=== PATIENT | male | born 1965 | race Caucasian/White ===

== ENCOUNTER 2018-02-27 22:04 | Inpatient (IN) | payer BC, OTHER ==
[2018-02-28 00:20] LABS: #Eosinphils 0.1 thou/uL (0.0-0.7); #Lymphocytes 1.9 thou/uL (1.20-3.40); #Monocytes 0.8 thou/uL (0.11-0.59); #Neutrophils 7.5 thou/uL (1.40-6.50); %Basophils 0.4 % (0.0-1.0); %Eosinophils 1.1 % (0.0-10.0); %Lymphocytes 18.2 % (21.0-51.0); %Monocytes 7.8 % (0.0-10.0); %Neutrophils 72.6 % (42.0-75.0); Hemoglobin 13.4 g/dL (14.0-18.0); Mean Corpuscular HGB CONC 35.8 g/dL (32.0-36.0); Mean Corpuscular Hemoglobin 32.4 pg (27.0-31.0); Mean Corpuscular Volume 90.7 fL (78.0-98.0); Mean Platelet Volume 6.4 fL (7.4-10.4); Platelet Count 302 thou/uL (130-400); RBC Distribution Width 11.8 % (11.5-14.5); Red Blood Cell (RBC) Count 4.12 mill/uL (4.70-6.10); White Blood Cell (WBC) Count 10.4 thou/uL (4.8-10.8)
[2018-02-28 00:28] LABS: Bilirubin Negative (Negative); Blood, Urine Negative (Negative); Clarity CLEAR (Clear); Glucose, Urine (Dipstick) Negative (Negative); Leukocyte Negative (Negative); Nitrite Negative (Negative); Protein, Urine (Dipstick) Negative (Neg-Trace); Specific Gravity, Urine 1.013 (1.002-1.036)
[2018-02-28 00:42] LABS: ALT (SGPT) 9 U/L (8-55); AST (SGOT) 15 U/L (5-34); Albumin 4.1 g/dL (3.5-5.0); Alkaline Phosphatase 113 U/L (40-150); Anion Gap 13 mmol/L (10-20); BUN (Urea Nitrogen) 19 mg/dL (8.4-25.7); Bilirubin, Total 0.5 mg/dL (0.2-1.2); Calc. Creatinine Clearance 0 mL/min (70-130); Calcium 9.2 mg/dL (7.8-10.44); Carbon Dioxide 23 mmol/L (22-29); Chloride 102 mmol/L (98-107); Estimated GFR-MDRD 67; Globulin 3.5 g/dL (2.4-3.5); Glucose 136 mg/dL (70-105); Lipase 22 U/L (8-78); Potassium 3.6 mmol/L (3.5-5.1); Protein, Total 7.6 g/dL (6.0-8.3); Sodium 134 mmol/L (136-145)
[2018-02-28] MEDS ORDERED: Morphine 4 MG/ML VIAL ONE (00:49)
[2018-02-28] MEDS ORDERED: metroNIDAZOLE 500 MG/100 ML BAG ONE (02:05)
[2018-02-28] MEDS ORDERED: Morphine 4 MG/ML VIAL SLOW IVP PRN (02:28)
[2018-02-28] MEDS ORDERED: Sodium Chloride 0.9% 1,000 ML IV SCH (02:30)
[2018-02-28 03:25] VITALS: BMI 25.2
[2018-02-28] MEDS ORDERED: Senokot S 8.6-50 MG TAB PO PRN (07:21)
[2018-02-28] MEDS ORDERED: hydrALAZINE 20 MG/ML VIAL SLOW IVP PRN (07:21)
[2018-02-28] MEDS ORDERED: Artificial Tear Sol 15 ML BOT EA EYE PRN (07:21)
[2018-02-28] MEDS ORDERED: Bisacodyl 5 MG TAB PO PRN (07:21)
[2018-02-28] MEDS ORDERED: Ondansetron ODT 4 MG TAB PO PRN (07:21)
[2018-02-28] MEDS ORDERED: Calcium Carbonate 500 MG ChewTAB PO PRN (07:21)
[2018-02-28] MEDS ORDERED: Bisacodyl 10 MG SUPP PR PRN (07:21)
[2018-02-28] MEDS ORDERED: Diabetic Tussin 200 MG/10 ML UDCUP PO PRN (07:21)
[2018-02-28] MEDS ORDERED: HYDROcodone/Acetaminophen 5/325 mg Tablet PO PRN (07:21)
[2018-02-28] MEDS ORDERED: Cepastat Lozenges 1 LOZ PO PRN (07:21)
[2018-02-28] MEDS ORDERED: Ondansetron PF 4 MG/2 ML Vial IVP PRN (07:21)
[2018-02-28] MEDS ORDERED: Eucerin (Mineral Oil/Petrolatum,White) 30 gm Jar TOP PRN (07:21)
[2018-02-28] MEDS ORDERED: Loperamide HCl 2 MG CAP PO PRN (07:21)
[2018-02-28] MEDS ORDERED: Zolpidem Tartrate 5 MG TAB PO PRN (07:21)
[2018-02-28] MEDS ORDERED: Loratadine 10 MG TAB PO PRN (07:21)
[2018-02-28] MEDS ORDERED: Sodium Chloride 0.65% Nasal 44 ML BOT EA NARE PRN (07:21)
[2018-02-28] MEDS ORDERED: Acetaminophen 325 MG TAB PO PRN (07:21)
[2018-02-28] MEDS: Morphine 2 MG/ML SYRINGE SLOW IVP PRN ×2 (08:01→16:28)
[2018-02-28] MEDS: Enoxaparin Sodium 40 MG/0.4 ML SYRINGE SC SCH (08:03)
[2018-02-28] MEDS: Saccharomyces boulardii 250 MG CAP PO SCH (08:04)
[2018-02-28] MEDS: Famotidine 20 MG TAB PO SCH ×2 (08:04→20:23)
[2018-02-28] MEDS: Sodium Chloride 0.9% 1,000 ML IV SCH ×2 (08:06→20:24)
--- NOTE | 2018-02-28 09:38 | CT ---
PRELIMINARY REPORT/[facility]/EMERGENTY AFTER-HOURS PROCEDURE CT Abdomen and Pelvis With Intravenous Contrast EXAM DATE/TIME: 02/28/2018 12:41 AM CLINICAL HISTORY: 52 years old, male; Pain; Abdominal pain; Generalized; Patient HX: M52 presents to the ed C/O diffuse abdominal pain, and feeling constipated. PT reports taking a laxatives with no relief. PT reports fe eling like he is unable to have a full bowel movement. PT denies nausea/vomiting, fever. PT reports last bm was very small and hard. PT reports having gall bladder and appendix. TECHNIQUE: Axial computed tomography images of the abdomen and pelvis with intravenous contrast. Coronal reformatted images were created and reviewed. COMPARISON: No relevant prior studies available. FINDINGS: Lower thorax: Rounded 4 cm hiatal hernia. ABDOMEN: Liver: Normal. No mass. Gallbladder and bile ducts: Normal. No calcified stones. No ductal dilation. Pancreas: Normal. No ductal dilation. Spleen: Normal. No splenomegaly. Adrenals: Normal. No mass. Kidneys and ureters: Normal. No hydronephrosis. Stomach and bowel: Mild-moderate inhomogeneity of the fat and wall thickening of the sigmoid colon wi th evidence of diverticulosis of this portion colon. No evidence of bowel obstruction. Appendix: Appendix - visualized portions appear normal. PELVIS: Bladder: Unremarkable as visualized. Reproductive: Prostate appears within normal limits. ABDOMEN and PELVIS: Intraperitoneal space: Normal. No free air. No significant fluid collection. Bones/joints: Chronic degenerative changes of the lumbar spine. Soft tissues: Unremarkable. Vasculature: Chronic atherosclerotic calcification of the vasculature. Lymph nodes: Normal. No enlarged lymph nodes. IMPRESSION: 1. Findings most consistent with sigmoid diverticulitis. No evidence of focal abscess formation or fr ee air suggest perforation. 2. No evidence of bowel obstruction. 3. Rounded 4 cm hiatal hernia. Thank you for allowing us to participate in the care of your patient. Dictated and Authenticated by: Eric Millard MD 02/28/2018 1:19 AM Central Time (US & Sun) FINAL REPORT ABDOMEN AND PELVIC CT SCAN WITH IV CONTRAST: EMERGENCY AFTER HOURS BASIS TIME: 12:42 a.m. DATE: 02/28/2018. FINDINGS: Abnormal colonic wall thickening with pericolonic fat stranding in the sigmoid colon, evidence for ac kiko sigmoid diverticulitis without evidence for drainable abscess or extraluminal air. No evidence o f associated bowel obstruction. Moderate-size hiatal hernia. No CT evidence for acute appendicitis. Small bilateral fat-containing inguinal hernias. POS: [facility]
[2018-02-28] MEDS: metroNIDAZOLE 500 MG in Premix Bag 1 BAG IVPB SCH ×2 (09:48→18:14)
[2018-02-28] MEDS ORDERED: metroNIDAZOLE 500 MG in Premix Bag 1 BAG IVPB SCH (10:00)
[2018-02-28] MEDS ORDERED: ISOVUE-370 76%-LOCM 1 ML ONE (10:18)
--- NOTE | 2018-02-28 10:24 | HP ---
DATE OF ADMISSION: 02/28/2018 PRIMARY CARE PHYSICIAN: Joseph Bridges M.D. REASON FOR ADMISSION: Acute diverticulitis. HISTORY OF PRESENT ILLNESS: A 52-year-old male with no significant medical history who came to emerg ency room last night with diffuse abdominal pain. The patient reports that for the last 2 weeks, he is experiencing constipation. Each day, he was having little and little bowel movement. He was tryi ng stool softener without any significant help. The patient started feeling abdominal pain middle of last week. He was experiencing left lower quadrant as well as that pain was moving too diffusely. The patient denies any relation of pain with food, respiration or any bowel movement. The patient de nies any hematochezia or melena. He denies any nausea or vomiting. He was feeling night sweats and sometimes he was feeling chills, but he is not sure about fever. Initially, the patient thought that everything is related with constipation and he was taking laxatives without any improvement, but his pain kept getting worse and that is why he decided to come to the emergency room last night. In the emergency room, the patient had CT of the abdomen and pelvis, which confirmed sigmoid divertic ulitis. The patient has received Cipro and Flagyl and pain medicine and subsequently he was admitted to medical floor as a full admission. When I saw this patient this morning, the patient is still having diffuse abdominal pain, but after p ain medication, his pain momentarily gets better. The patient reports that 3 years ago when he was traveling at that time, he had similar but mild inte nsity discomfort in his abdomen. At that time, investigation was done in the emergency room and he w as found with diverticulitis and he was given a course of antibiotic therapy. Since then, he did not have any further problem up until now. The patient also reports that he had colonoscopy locally in our town in 04/2016. Per the patient, it was essentially unremarkable and GI doctor notified him to repeat colonoscopy in 10 years. REVIEW OF SYSTEMS: The following complete review of systems was negative, unless otherwise mentioned in the HPI or below: Constitutional: Weight loss or gain, ability to conduct usual activities. Sk in: Rash, itching. Eyes: Double vision, pain. ENT/Mouth: Nose bleeding, neck stiffness, pain, te nderness. Cardiovascular: Palpitations, dyspnea on exertion, orthopnea. Respiratory: Shortness of breath, wheezing, cough, hemoptysis, fever or night sweats. Gastrointestinal: Poor appetite, abdom inal pain, heartburn, nausea, vomiting, constipation, or diarrhea. Genitourinary: Urgency, frequenc y, dysuria, nocturia. Musculoskeletal: Pain, swelling. Neurologic/Psychiatric: Anxiety, depressio n. Allergy/Immunologic: Skin rash, bleeding tendency. Please see my HPI for pertinent positive and negative. All other review of systems reviewed and negative except as mentioned in the HPI. EMERGENCY ROOM COURSE: The patient has received Cipro 400 mg, Flagyl 500 mg, IV fluid, morphine 4 mg . PAST MEDICAL HISTORY: The patient is denying any medical history at this point. He is not on any sp ecific ongoing medication. PAST SURGICAL HISTORY: The patient reports that he had surgery for pyloric stenosis. PAST PSYCHIATRIC HISTORY: Reviewed and negative. SOCIAL HISTORY: The patient is and lives at home with his . No history of tobacco, alco hol or illicit drug abuse. FAMILY HISTORY: No family history of colon cancer. No family history of coronary artery disease, [place] or cancer. CURRENT HOME MEDICATIONS: The patient is not taking any prescribed or non-prescribed medication. ALLERGIES: No known drug allergy. PHYSICAL EXAMINATION: VITAL SIGNS: Currently, blood pressure 149/83, pulse 86, respiratory rate 18, temperature 98.4, satu ration 99% on room air, weight 79.4 kilograms. GENERAL: The patient is currently alert, awake, mild distress due to pain. HEAD: Normocephalic, atraumatic. EYES: Pupils round, reactive to light. Extraocular muscles intact. ENT: Oropharynx within normal limits. Moist mucous membranes. No oral lesion, no pharyngeal erythe ma, no exudate. NECK: Supple, no JVD, no thyromegaly, no carotid bruit. LUNGS: Clear to auscultation without any rhonchi or rales. CARDIAC: S1, S2 regular without any murmur. ABDOMEN: Soft. The patient does have diffuse discomfort, but more predominantly in left lower quadr ant as well as in suprapubic region. No rebound tenderness, no peritoneal sign. BACK: Unremarkable. No CVA tenderness. EXTREMITIES: Upper extremities, passive movement of all joints are normal. Lower extremities, no ed juan. Good distal pulsation. SKIN: No skin rash. HEMATOLOGICAL: No lymphadenopathy. NEUROLOGIC: Nonfocal examination. The patient moves all 4 limbs. Plantar bilateral flexor. PSYCHIATRIC: Normal affect. SIGNIFICANT LABORATORY DATA: CT of the abdomen and pelvis reviewed by me and consistent with sigmoid diverticulitis without any complication. Mild hiatal hernia. CBC, WBC 10.4, hemoglobin 13.4, plate lets 302,000. BMP, sodium 134, potassium 3.6, chloride 102, carbon dioxide 23, anion gap 13, BUN 19, creatinine 1.14, glucose 136, calcium 9.2. LFT, AST 15, ALT 9, alkaline phosphatase 113, albumin 4. 1, lipase 22. Urinalysis normal. ASSESSMENT AND PLAN: 1. Acute diverticulitis without complication. The patient has severe pain. His pain is not control led with pain medication at home and that is why he requires hospitalization for proper pain control. He will be given IV antibiotic therapy with Cipro 400 mg IV twice daily and Flagyl 500 mg IV q.8 ho urly. His pain will be controlled with morphine 2 mg every 2 hourly, probiotics, Florastor 250 mg p. o. b.i.d. will be given. We will continue the clear liquid diet as tolerated. If he tolerates diet without any nausea and vomiting, then we will advance his diet once pain is well controlled. During that period, we will continue with IV fluid NS at 100 mL per hour. This is second episode of diverti culitis and he already had colonoscopy in 2017. At this point, the patient will need further evaluat ion as an outpatient basis and that is why he will follow up with GI after discharge. 2. Mild hiatal hernia. The patient will be given Pepcid 20 mg p.o. b.i.d. to prevent reflux, mild h yponatremia and mild anemia. We will repeat CBC and BMP tomorrow. 3. Deep venous thrombosis prophylaxis. Lovenox 40 mg subcu daily. 4. Gastrointestinal prophylaxis, Pepcid 20 mg p.o. b.i.d. 5. Code status: The patient is full code. The patient's is surrogate decision maker. Disposi tion plan based on clinical course.
[2018-03-01] MEDS: Morphine 2 MG/ML SYRINGE SLOW IVP PRN ×4 (00:41→19:58)
[2018-03-01] MEDS: metroNIDAZOLE 500 MG in Premix Bag 1 BAG IVPB SCH ×3 (02:45→17:32)
[2018-03-01] MEDS: Sodium Chloride 0.9% 1,000 ML IV SCH ×4 (03:48→19:59)
[2018-03-01 05:15] LABS: #Eosinphils 0.1 thou/uL (0.0-0.7); #Lymphocytes 1.5 thou/uL (1.20-3.40); #Monocytes 0.5 thou/uL (0.11-0.59); #Neutrophils 3.7 thou/uL (1.40-6.50); %Basophils 0.6 % (0.0-1.0); %Eosinophils 2.1 % (0.0-10.0); %Lymphocytes 25.2 % (21.0-51.0); %Monocytes 9.1 % (0.0-10.0); Hemoglobin 11.9 g/dL (14.0-18.0); Mean Corpuscular Hemoglobin 30.3 pg (27.0-31.0); Mean Corpuscular Volume 91.9 fL (78.0-98.0); Mean Platelet Volume 6.9 fL (7.4-10.4); Platelet Count 282 thou/uL (130-400); RBC Distribution Width 11.7 % (11.5-14.5); Red Blood Cell (RBC) Count 3.93 mill/uL (4.70-6.10); White Blood Cell (WBC) Count 5.9 thou/uL (4.8-10.8)
[2018-03-01 05:34] LABS: Anion Gap 9 mmol/L (10-20); BUN (Urea Nitrogen) 8 mg/dL (8.4-25.7); Calc. Creatinine Clearance 100 mL/min (70-130); Calcium 8.7 mg/dL (7.8-10.44); Carbon Dioxide 26 mmol/L (22-29); Chloride 105 mmol/L (98-107); Estimated GFR-MDRD 78; Glucose 79 mg/dL (70-105); Potassium 4.7 mmol/L (3.5-5.1); Sodium 135 mmol/L (136-145)
[2018-03-01] MEDS: Enoxaparin Sodium 40 MG/0.4 ML SYRINGE SC SCH (09:37)
[2018-03-01] MEDS: Famotidine 20 MG TAB PO SCH ×2 (09:38→19:58)
[2018-03-01] MEDS: Saccharomyces boulardii 250 MG CAP PO SCH (09:38)
[2018-03-01] MEDS ORDERED: Polyethylene Glycol 3350 17 GM Packet PO SCH (10:45)
--- NOTE | 2018-03-01 10:45 | PDOC.PN ---
- Subjective Encounter Start Date: 03/01/18 Encounter Start Time: 09:40 -: old records requested/rev pt has no BM, still has vague discomfort, but overall better than yesterday - Objective Resuscitation Status: Resuscitation Status FULL:Full Resuscitation MAR Reviewed: Yes Vital Signs & Weight: Vital Signs (12 hours) Temp Pulse Resp BP Pulse Ox 03/01/18 07:04 98.7 F 62 16 105/64 96 03/01/18 04:00 97.7 F 62 18 120/76 97 03/01/18 00:00 97.9 F 65 18 115/69 95 Weight Weight 180 lb 8.937 oz I&O: 02/28/18 03/01/18 03/02/18 06:59 06:59 06:59 Intake Total 600 3280 Balance 600 3280 Result Diagrams: 03/01/18 04:22 03/01/18 04:22 Phys Exam - Physical Examination Constitutional: NAD HEENT: PERRLA, moist MMs, sclera anicteric Neck: no JVD, supple Respiratory: no wheezing, no rales, no rhonchi Cardiovascular: RRR, no significant murmur, no rub Gastrointestinal: soft, no distention, positive bowel sounds LLQ tenderness Musculoskeletal: no edema, pulses present Neurological: non-focal, normal sensation, moves all 4 limbs Lymphatic: no nodes Psychiatric: normal affect, A&O x 3 Skin: no rash, normal turgor Dx/Plan (1) Sigmoid diverticulitis Code(s): K57.32 - DVTRCLI OF LG INT W/O PERFORATION OR ABSCESS W/O BLEEDING Status: Acute (2) Anemia, normocytic normochromic Code(s): D64.9 - ANEMIA, UNSPECIFIED Status: Acute (3) Hyponatremia Code(s): E87.1 - HYPO-OSMOLALITY AND HYPONATREMIA Status: Acute - Plan cont current plan of care, continue antibiotics * continue IV cipro and flagyl * reduce IVF * advance to full liquid diet * miralax now and daily * medication reviewed as below * symptomatic treatment. * pain control Review of Systems - Review of Systems Eyes: negative: Pain, Vision Change, Conjunctivae Inflammation, Eyelid Inflammation, Redness, Other ENT: negative: Ear Pain, Ear Discharge, Nose Pain, Nose Discharge, Nose Congestion, Mouth Pain, Mouth Swelling, Throat Pain, Throat Swelling, Other Respiratory: negative: Cough, Dry, Shortness of Breath, Hemoptysis, SOB with Excertion, Pleuritic Pain, Sputum, Wheezing Cardiovascular: negative: chest pain, palpitations, orthopnea, paroxysmal nocturnal dyspnea, edema, light headedness, other Gastrointestinal: Abdominal Pain. negative: Nausea, Vomiting, Diarrhea, Constipation, Melena, Hematochezia, Other Genitourinary: negative: Dysuria, Frequency, Incontinence, Hematuria, Retention , Other Musculoskeletal: negative: Neck Pain, Shoulder Pain, Arm Pain, Back Pain, Hand Pain, Leg Pain, Foot Pain, Other Skin: negative: Rash, Lesions, Naveed, Bruising, Other - Medications/Allergies Allergies/Adverse Reactions: Allergies Allergy/AdvReac Type Severity Reaction Status Date / Time No Known Drug Allergies Allergy Verified 02/28/18 00:35 Medications: Current Medications Acetaminophen (Tylenol) 650 mg PO Q4H PRN PRN Reason: Headache/Fever/Mild Pain (1-3) Hydrocodone Bitart/Acetaminophen ([place] 5/325) 1 tab PO Q4H PRN PRN Reason: Moderate Pain (4-6) Artificial Tears (Tears Renewed 15ml Bottle) 2 drop EA EYE PRN PRN PRN Reason: Dry Eyes Bisacodyl (Dulcolax) 10 mg PO DAILYPRN PRN PRN Reason: Constipation Bisacodyl (Dulcolax) 10 mg [place] DAILYPRN PRN PRN Reason: Constipation Calcium Carbonate (Tums) 1,000 mg PO Q4H PRN PRN Reason: Heartburn or Indigestion Enoxaparin Sodium (Lovenox) 40 mg SC 0900 [facility] Last Admin: 03/01/18 09:37 Dose: 40 mg Famotidine (Pepcid) 20 mg PO BID [facility] Last Admin: 03/01/18 09:38 Dose: 20 mg Guaifenesin (Robitussin Sf) 200 mg PO Q4H PRN PRN Reason: Cough Hydralazine HCl (Apresoline) 10 mg SLOW IVP Q4H PRN PRN Reason: SBP > 180 and HR < 70 Metronidazole 500 mg/ Device 100 mls @ 100 mls/hr IVPB 0200,1000,1800 [facility] Last Admin: 03/01/18 09:38 Dose: 100 mls Ciprofloxacin/Dextrose 400 mg/ (Device) 200 mls @ 200 mls/hr IVPB 0100,1300 [facility] Last Admin: 03/01/18 00:44 Dose: 200 mls Sodium Chloride (Normal Saline 0.9%) 1,000 mls @ 70 mls/hr IV .[id number] [facility] Last Admin: 03/01/18 09:37 Dose: Not Given Loperamide HCl (Imodium) 2 mg PO PRN PRN PRN Reason: Diarrhea/Loose Stools Loratadine (Claritin) 10 mg PO DAILYPRN PRN PRN Reason: Sinus Symptoms Mineral Oil/White Petrolatum (Eucerin Cream) 0 gm TOP BIDPRN PRN PRN Reason: Dry Skin Morphine Sulfate (Morphine) 2 mg SLOW IVP Q2H PRN PRN Reason: Pain Last Admin: 03/01/18 05:52 Dose: 2 mg Ondansetron HCl (Zofran Odt) 4 mg PO Q6H PRN PRN Reason: Nausea/Vomiting Ondansetron HCl (Zofran) 4 mg IVP Q6H PRN PRN Reason: Nausea/Vomiting Saccharomyces Boulardii (Florastor) 250 mg PO DAILY [facility] Last Admin: 03/01/18 09:38 Dose: 250 mg Senna/Docusate Sodium (Senokot S) 2 tab PO BID PRN PRN Reason: Constipation Sodium Chloride ([place] Nasal [place] 0.65%) 0 ml EA NARE QIDPRN PRN PRN Reason: Nasal Congestion Throat Lozenges (Cepastat Lozenges) 1 wilmar PO Q2H PRN PRN Reason: Sore Throat Zolpidem Tartrate (Ambien) 5 mg PO HSPRN PRN PRN Reason: Insomnia
[2018-03-02] MEDS: metroNIDAZOLE 500 MG in Premix Bag 1 BAG IVPB SCH ×3 (03:00→17:09)
[2018-03-02] MEDS: Saccharomyces boulardii 250 MG CAP PO SCH (09:11)
[2018-03-02] MEDS: Famotidine 20 MG TAB PO SCH ×2 (09:11→19:23)
[2018-03-02] MEDS: Polyethylene Glycol 3350 17 GM Packet PO SCH (09:11)
[2018-03-02] MEDS: Enoxaparin Sodium 40 MG/0.4 ML SYRINGE SC SCH (09:11)
--- NOTE | 2018-03-02 12:57 | PDOC.PN ---
- Subjective Encounter Start Date: 03/02/18 Encounter Start Time: 07:30 Patient seen and examined. No overnight events pt still has abdominal pain and subjectively feels same - Objective Resuscitation Status: Resuscitation Status FULL:Full Resuscitation MAR Reviewed: Yes Vital Signs & Weight: Vital Signs (12 hours) Temp Pulse Resp BP Pulse Ox 03/02/18 11:44 97.7 F 69 18 119/67 96 03/02/18 08:07 97.7 F 73 19 119/67 96 03/02/18 08:00 96 Weight Weight 180 lb 8.937 oz I&O: 03/01/18 03/02/18 03/03/18 06:59 06:59 06:59 Intake Total 3280 1620 Output Total 550 Balance 3280 1070 Result Diagrams: 03/01/18 04:22 03/01/18 04:22 Phys Exam - Physical Examination Constitutional: NAD HEENT: PERRLA, moist MMs, sclera anicteric Neck: no JVD, supple Respiratory: no wheezing, no rales, no rhonchi Cardiovascular: RRR, no significant murmur, no rub Gastrointestinal: soft, non-tender, no distention, positive bowel sounds Musculoskeletal: no edema, pulses present Neurological: non-focal, normal sensation, moves all 4 limbs Lymphatic: no nodes Psychiatric: normal affect, A&O x 3 Skin: no rash, normal turgor Dx/Plan (1) Sigmoid diverticulitis Code(s): K57.32 - DVTRCLI OF LG INT W/O PERFORATION OR ABSCESS W/O BLEEDING Status: Acute (2) Anemia, normocytic normochromic Code(s): D64.9 - ANEMIA, UNSPECIFIED Status: Acute (3) Hyponatremia Code(s): E87.1 - HYPO-OSMOLALITY AND HYPONATREMIA Status: Acute - Plan cont current plan of care, plan discussed w/ family, continue antibiotics * DC IVF * continue full liquid * GI consult per family request * medication reviewed as below * symptomatic treatment * ambulate today * pain controlled. Review of Systems - Review of Systems Constitutional: negative: fever, chills, sweats, weakness, malaise, other Eyes: negative: Pain, Vision Change, Conjunctivae Inflammation, Eyelid Inflammation, Redness, Other ENT: negative: Ear Pain, Ear Discharge, Nose Pain, Nose Discharge, Nose Congestion, Mouth Pain, Mouth Swelling, Throat Pain, Throat Swelling, Other Respiratory: negative: Cough, Dry, Shortness of Breath, Hemoptysis, SOB with Excertion, Pleuritic Pain, Sputum, Wheezing Cardiovascular: negative: chest pain, palpitations, orthopnea, paroxysmal nocturnal dyspnea, edema, light headedness, other Gastrointestinal: Abdominal Pain. negative: Nausea, Vomiting, Diarrhea, Constipation, Melena, Hematochezia, Other Genitourinary: negative: Dysuria, Frequency, Incontinence, Hematuria, Retention , Other Musculoskeletal: negative: Neck Pain, Shoulder Pain, Arm Pain, Back Pain, Hand Pain, Leg Pain, Foot Pain, Other - Medications/Allergies Allergies/Adverse Reactions: Allergies Allergy/AdvReac Type Severity Reaction Status Date / Time No Known Drug Allergies Allergy Verified 02/28/18 00:35 Medications: Current Medications Acetaminophen (Tylenol) 650 mg PO Q4H PRN PRN Reason: Headache/Fever/Mild Pain (1-3) Hydrocodone Bitart/Acetaminophen ([place] 5/325) 1 tab PO Q4H PRN PRN Reason: Moderate Pain (4-6) Artificial Tears (Tears Renewed 15ml Bottle) 2 drop EA EYE PRN PRN PRN Reason: Dry Eyes Bisacodyl (Dulcolax) 10 mg PO DAILYPRN PRN PRN Reason: Constipation Bisacodyl (Dulcolax) 10 mg [place] DAILYPRN PRN PRN Reason: Constipation Calcium Carbonate (Tums) 1,000 mg PO Q4H PRN PRN Reason: Heartburn or Indigestion Enoxaparin Sodium (Lovenox) 40 mg SC 0900 [facility] Last Admin: 03/02/18 09:11 Dose: 40 mg Famotidine (Pepcid) 20 mg PO BID [facility] Last Admin: 03/02/18 09:11 Dose: 20 mg Guaifenesin (Robitussin Sf) 200 mg PO Q4H PRN PRN Reason: Cough Hydralazine HCl (Apresoline) 10 mg SLOW IVP Q4H PRN PRN Reason: SBP > 180 and HR < 70 Metronidazole 500 mg/ Device 100 mls @ 100 mls/hr IVPB 0200,1000,1800 [facility] Last Admin: 03/02/18 09:11 Dose: 100 mls Ciprofloxacin/Dextrose 400 mg/ (Device) 200 mls @ 200 mls/hr IVPB 0100,1300 [facility] Last Admin: 03/02/18 12:40 Dose: 200 mls Loperamide HCl (Imodium) 2 mg PO PRN PRN PRN Reason: Diarrhea/Loose Stools Loratadine (Claritin) 10 mg PO DAILYPRN PRN PRN Reason: Sinus Symptoms Mineral Oil/White Petrolatum (Eucerin Cream) 0 gm TOP BIDPRN PRN PRN Reason: Dry Skin Morphine Sulfate (Morphine) 2 mg SLOW IVP Q2H PRN PRN Reason: Pain Last Admin: 03/01/18 19:58 Dose: 2 mg Ondansetron HCl (Zofran Odt) 4 mg PO Q6H PRN PRN Reason: Nausea/Vomiting Ondansetron HCl (Zofran) 4 mg IVP Q6H PRN PRN Reason: Nausea/Vomiting Polyethylene Glycol (Miralax) 17 gm PO DAILY [facility] Last Admin: 03/02/18 09:11 Dose: 17 gm Saccharomyces Boulardii (Florastor) 250 mg PO DAILY [facility] Last Admin: 03/02/18 09:11 Dose: 250 mg Senna/Docusate Sodium (Senokot S) 2 tab PO BID PRN PRN Reason: Constipation Sodium Chloride ([place] Nasal [place] 0.65%) 0 ml EA NARE QIDPRN PRN PRN Reason: Nasal Congestion Throat Lozenges (Cepastat Lozenges) 1 wilmar PO Q2H PRN PRN Reason: Sore Throat Zolpidem Tartrate (Ambien) 5 mg PO HSPRN PRN PRN Reason: Insomnia
--- NOTE | 2018-03-02 17:26 | CON ---
DATE OF CONSULTATION: 03/02/2018 HISTORY OF PRESENT ILLNESS: Patient is a 52-year-old gentleman who was in his normal state of health until a few days prior to admission when he developed lower abdominal pain. He had no tiffanie nge in his bowel function, no nausea, vomiting, some mild subjective fever, but no chills, had a jonathan lar episode approximately 3 years ago and was treated with antibiotics as an outpatient. He underwen t a colonoscopy in 04/2016, which is reported as a negative exam. PAST MEDICAL HISTORY: Significant for diverticulitis. PAST SURGICAL HISTORY: Includes pyloric stenosis. ALLERGIES: No known medical allergies. SOCIAL HISTORY: He does smoke a pack per day. Does not drink. FAMILY HISTORY: Significant for his mother who has diverticulitis. ALLERGIES: No known allergies. REVIEW OF SYSTEMS: Constitutional: No fever or chills, no weight loss. Eyes: No blurred vision or double vision. ENT: No sore throat or earaches. Cardiovascular: No chest pain or shortness of br eath. Pulmonary: No shortness of breath, cough or wheezing. Gastrointestinal: See above. Genitou rinary: No hematuria or dysuria. Musculoskeletal: No joint pain, muscle weakness. Skin: No rashe s. Neurologic: No numbness or seizure activity. PHYSICAL EXAMINATION: GENERAL: Shows a well-developed, well-nourished, white male in no acute distress. VITAL SIGNS: Temperature 97.7, pulse 69, respiratory rate 18, blood pressure 119/67. HEENT: Unremarkable. NECK: Supple. CHEST: Clear. CARDIOVASCULAR: Regular rate and rhythm. ABDOMEN: Soft, tender in the left lower quadrant without rebound or guarding. Bowel sounds are pres ent. LABORATORY: Shows a white blood cell count of 10.4, hemoglobin 13.4, hematocrit 37.4. Chemistries s how sodium 134, glucose 136. Urinalysis is negative. CT of the abdomen and pelvis showed findings m ost consistent with sigmoid diverticulitis without evidence of abscess or free air, a 4 cm hiatal her jimbo. ASSESSMENT: Sigmoid diverticulitis, uncomplicated -- patient is slow to improve. RECOMMENDATIONS: 1. The patient is really not having any contraindication to oral therapy. I would consider switchin g to oral antibiotics tomorrow if he continues to improve. 2. Once antibiotic course is finished with consider beginning Citrucel on a daily basis. 3. Full 14-day course of antibiotics.
[2018-03-03] MEDS: metroNIDAZOLE 500 MG in Premix Bag 1 BAG IVPB SCH ×3 (02:40→10:37)
[2018-03-03 07:28] VITALS: BP 116/76; TEMP 98.6
[2018-03-03] MEDS: Saccharomyces boulardii 250 MG CAP PO SCH (09:27)
[2018-03-03] MEDS: Famotidine 20 MG TAB PO SCH (09:27)
[2018-03-03] MEDS: Polyethylene Glycol 3350 17 GM Packet PO SCH (09:28)
[2018-03-03] MEDS: Enoxaparin Sodium 40 MG/0.4 ML SYRINGE SC SCH (09:28)
[2018-03-03] MEDS ORDERED: Ciprofloxacin 500 MG TAB PO SCH ×2 (10:45→20:00)
[2018-03-03] MEDS ORDERED: metroNIDAZOLE 500 MG TAB PO SCH ×2 (10:45→15:00)
--- NOTE | 2018-03-04 07:29 | DIS ---
DATE OF ADMISSION: 02/28/2018 DATE OF DISCHARGE: 03/03/2018 CONDITION AT THE TIME OF DISCHARGE: Stable and improved. DISCHARGE DISPOSITION: Home. PRIMARY CARE PHYSICIAN: Dr. Frank Pascal DISCHARGE DIAGNOSES: 1. Recurrent diverticulitis. 2. History of diverticulitis. DISCHARGE MEDICATIONS: Ciprofloxacin 500 p.o. b.i.d. for 12 more days, metronidazole 500 t.i.d. for 12 more days, Florastor 250 mg daily for 14 days. IN-HOUSE CONSULTATIONS: GI, Dr. Hanna. PROCEDURES DONE IN THE HOSPITAL: CT scan of the abdomen and pelvis which showed sigmoid diverticulit is without any abscess. HISTORY OF PRESENT ILLNESS: Mr. Hassan is a very pleasant 52-year-old male with past medical histo ry of diverticulitis who presented to the emergency room with complaints of significant diffuse abdom inal pain of 2 weeks' duration with constipation. He denies any nausea, vomiting, hematochezia, or m saul. He was hemodynamically stable upon presentation. A CT scan of the abdomen and pelvis done in the ER confirmed sigmoid diverticulitis. He was started on empiric IV antibiotics, IV fluids and n. p.o. status and was admitted for further treatment. He had slow improvement in his symptoms. GI was also consulted because of that and Dr. Hanna agreed w ith continuation of IV antibiotic and eventually changing him to oral and then complete a course of 2 weeks of oral antibiotic. As of this morning, the patient was transitioned from clear liquid to ful l diet which he tolerated very well. His symptoms have largely resolved and he is eager to go home. His antibiotics were changed to oral and he was given prescription of the same. He will follow up susie Hanna in the outpatient setting as well as with primary care physician. He was seen and examined this morning. VITAL SIGNS: His physical examination with vital signs are stable. Temperature 98.6, heart rate 71, blood pressure 116/76, saturating 96% on room air. GENERAL: In no acute distress. ABDOMEN: Soft, nontender, nondistended. No rebound, rigidity or guarding. Bowel sounds are loud an d rumbling. He has had 2 or 3 loose stools since he has been up here. CHEST: Clear to auscultation bilaterally. CARDIOVASCULAR: Rate and rhythm is regular. LABORATORY EXAMINATION: CBC, serum chemistries are unremarkable largely. Discharge plan was discussed with the patient who verbalized understanding. Total time spent in the discharge of this patient 32 minutes.
== END 2018-03-03 17:00 | disposition home or self-care (01) | DRG 392 ==
LOC: ERS 22:04 → T4-A 02-28 01:15
PROVIDERS: ADMIT Hospitalist; ATTEND Hospitalist
DX: K57.32 Diverticulitis of large intestine without perforation or abscess without bleeding (principal); E87.1 Hypo-osmolality and hyponatremia; K59.00 Constipation, unspecified; K44.9 Diaphragmatic hernia without obstruction or gangrene; D64.9 Anemia, unspecified
CPT/HCPCS: 36415; 74177; 80048; 80053; 81003; 83690; 85025; 96365; 96375; J0744; J1650; J2270

== ENCOUNTER 2018-07-24 18:24 | Emergency (ER) | payer BC, OTHER, SELFPAY ==
[~2018-07-24 18:24] MED LIST: ISOVUE-370 76%-LOCM 1 ML ONE
[2018-07-24] MEDS ORDERED: Morphine 4 MG/ML VIAL ONE (19:54)
[2018-07-24] MEDS ORDERED: Ondansetron PF 4 MG/2 ML Vial ONE (19:54)
[2018-07-24 20:06] LABS: #Eosinphils 0.1 thou/uL (0.0-0.7); #Lymphocytes 2.1 thou/uL (1.20-3.40); #Monocytes 0.7 thou/uL (0.11-0.59); #Neutrophils 8.8 thou/uL (1.40-6.50); %Basophils 0.2 % (0.0-1.0); %Lymphocytes 17.9 % (21.0-51.0); %Monocytes 5.6 % (0.0-10.0); %Neutrophils 75.3 % (42.0-75.0); Hemoglobin 14.1 g/dL (14.0-18.0); Mean Corpuscular HGB CONC 33.4 g/dL (32.0-36.0); Mean Corpuscular Hemoglobin 30.7 pg (27.0-31.0); Mean Platelet Volume 6.3 fL (7.4-10.4); Platelet Count 247 thou/uL (130-400); RBC Distribution Width 12.2 % (11.5-14.5); Red Blood Cell (RBC) Count 4.59 mill/uL (4.70-6.10); White Blood Cell (WBC) Count 11.7 thou/uL (4.8-10.8)
[2018-07-24 20:32] LABS: ALT (SGPT) 16 U/L (8-55); AST (SGOT) 22 U/L (5-34); Albumin 4.1 g/dL (3.5-5.0); Alkaline Phosphatase 116 U/L (40-150); Anion Gap 10 mmol/L (10-20); BUN (Urea Nitrogen) 13 mg/dL (8.4-25.7); Bilirubin, Total 0.6 mg/dL (0.2-1.2); Calc. Creatinine Clearance 0 mL/min (70-130); Calcium 9.2 mg/dL (7.8-10.44); Carbon Dioxide 28 mmol/L (22-29); Chloride 103 mmol/L (98-107); Estimated GFR-MDRD 88; Globulin 3.1 g/dL (2.4-3.5); Glucose 82 mg/dL (70-105); Lipase 17 U/L (8-78); Potassium 3.8 mmol/L (3.5-5.1); Protein, Total 7.2 g/dL (6.0-8.3); Sodium 137 mmol/L (136-145)
--- NOTE | 2018-07-24 21:01 | CT ---
CONTRAST ENHANCED CT IMAGES ABDOMEN AND PELVIS: 07/24/18 HISTORY: Abdominal pain. Contrast enhanced CT images of the abdomen and pelvis is obtained after administration of IV contrast . The lung bases are unremarkable. No significant evidence of pneumonia or lung base abnormality seen. No evidence of free intraperitoneal air seen. The liver and spleen are unremarkable. The gallbladder and pancreas are unremarkable. The patient has a moderate sized sliding type hiatal hernia. Adrenal glands unremarkable. Kidneys unremarkable. No dilated loops of small bowel seen. Normal appen megha is seen. There is extensive descending colonic diverticulosis. There is a large segment of the sigmoid colon which is markedly thickened and inflamed compatible wit h possible sigmoid colonic mass. This has been seen on patient's previous CT from 02/28/18. Differen tial diagnosis includes colonic malignancy versus extensive sigmoid colonic diverticulitis. Correlat e with direct visualization. IMPRESSION: Extensive sigmoid colonic thickening and inflammatory change. Differential diagnosis includes fairly long segment area of diverticulitis and/or possible mass. Correlate with direct visualization. A jonathan lar area was seen on previous CT from 02/28/18. POS: ALENA
[2018-07-24] MEDS ORDERED: Ciprofloxacin 500 MG TAB ONE (21:39)
[2018-07-24] MEDS ORDERED: metroNIDAZOLE 250 MG TAB ONE (21:39)
[2018-07-24] MEDS ORDERED: Ondansetron ODT 4 MG TAB ONE (21:43)
[2018-07-24] MEDS ORDERED: HYDROcodone/Acetaminophen 5/325 mg Tablet ONE (21:55)
== END 2018-07-24 22:01 | disposition home or self-care (01) ==
LOC: ERS 18:24
DX: K57.32 Diverticulitis of large intestine without perforation or abscess without bleeding (principal); R11.0 Nausea; I10 Essential (primary) hypertension; F17.210 Nicotine dependence, cigarettes, uncomplicated; E05.90 Thyrotoxicosis, unspecified without thyrotoxic crisis or storm
CPT/HCPCS: 36415; 74177; 80053; 83690; 85025; 96361; 96374; 96375; J2270; J2405; Q0162; Q9966

== ENCOUNTER 2018-11-14 16:43 | Emergency (ER) | payer OTHER ==
[~2018-11-14 16:43] MED LIST changes: -ISOVUE-370 76%-LOCM 1 ML ONE; +Iopamidol 370 76% 100 ML VIAL ONE
[2018-11-14 17:55] LABS: Bilirubin Negative (Negative); Blood, Urine Negative (Negative); Clarity Clear (Clear); Glucose, Urine (Dipstick) Normal (Negative); Leukocyte Negative Leu/uL (Negative); Nitrite Negative (Negative); Protein, Urine (Dipstick) Negative (Neg-Trace); Urobilinogen Normal mg/dL (Less than 2)
[2018-11-14 17:59] LABS: #Eosinphils 0.5 thou/uL (0.0-0.7); #Lymphocytes 0.5 thou/uL (1.20-3.40); #Monocytes 0.8 thou/uL (0.11-0.59); #Neutrophils 14.6 thou/uL (1.40-6.50); %Basophils 0.2 % (0.0-1.0); %Lymphocytes 3.2 % (21.0-51.0); %Neutrophils 88.6 % (42.0-75.0); Hemoglobin 13.9 g/dL (14.0-18.0); Mean Corpuscular HGB CONC 33.6 g/dL (32.0-36.0); Mean Corpuscular Hemoglobin 30.8 pg (27.0-31.0); Mean Corpuscular Volume 91.6 fL (78.0-98.0); Mean Platelet Volume 6.8 fL (7.4-10.4); Platelet Count 219 thou/uL (130-400); RBC Distribution Width 12.1 % (11.5-14.5); Red Blood Cell (RBC) Count 4.51 mill/uL (4.70-6.10); White Blood Cell (WBC) Count 16.4 thou/uL (4.8-10.8)
[2018-11-14 18:22] LABS: ALT (SGPT) 16 U/L (8-55); AST (SGOT) 22 U/L (5-34); Albumin 3.8 g/dL (3.5-5.0); Alkaline Phosphatase 90 U/L (40-150); Anion Gap 14 mmol/L (10-20); BUN (Urea Nitrogen) 16 mg/dL (8.4-25.7); Bilirubin, Total 0.6 mg/dL (0.2-1.2); Calc. Creatinine Clearance 0 mL/min (70-130); Calcium 9.1 mg/dL (7.8-10.44); Carbon Dioxide 21 mmol/L (22-29); Chloride 104 mmol/L (98-107); Estimated GFR-MDRD 57; Glucose 142 mg/dL (70-105); Lipase 16 U/L (8-78); Potassium 3.5 mmol/L (3.5-5.1); Protein, Total 6.8 g/dL (6.0-8.3); Sodium 135 mmol/L (136-145)
[2018-11-14] MEDS ORDERED: diphenhydrAMINE 50 MG/ML VIAL ONE (19:21)
[2018-11-14] MEDS ORDERED: Metoclopramide HCl 10 MG/2 ML VIAL ONE (19:22)
--- NOTE | 2018-11-14 20:05 | CT ---
CT Abdomen Pelvis W Con History: Abdominal pain Comparison: CT abdomen and pelvis July 24, 2018 Findings: Lung bases are clear. Moderate sliding hiatal hernia. Normal proximal small bowel rotation. The liver gallbladder spleen are unremarkable. Pancreas. Adrenal glands unremarkable. No hydronephros is. There is a hypodensity within the superior medial cortex left kidney not definitively a cyst, althoug h similar dating back to 2001. Aortoiliac contour is nonaneurysmal. Market thickening of the sigmoid colon is similar to the compari son examination with thickening of the peritoneal reflection from chronic bouts of diverticulitis. Extensive submucosal fatty infiltration of the distal ileum and terminal ileum as well as portions of the ascending colon. The appendix is visualized and is normal. No bowel obstruction. There are some foci of submucosal fat infiltration of jejunum and ilium separat e from the terminal ileum. No retroperitoneal periaortic adenopathy. Increased mesenteric fat. Impression: 1. Thickened sigmoid colon with numerous diverticula suggesting colitis. If not already performed, re commend correlation with colonoscopy. 2. Scattered foci of submucosal fat infiltration of the colon, jejunum and ileum can be seen with chr onic inflammatory bowel disease. 3. No evidence for perforation or abscess. 4. Moderate sliding hiatal hernia.
[2018-11-14] MEDS ORDERED: Ketorolac Tromethamine 30 MG/ML VIAL ONE (20:32)
[2018-11-14] MEDS ORDERED: Magnesium 2 GM/50 ML BAG (IN WATER) ONE (20:33)
[2018-11-14] MEDS ORDERED: Magnesium 2 GM/50 ML 2 GM in Premix Bag 1 BAG IVPB ONE (20:45)
== END 2018-11-14 22:29 | disposition home or self-care (01) ==
LOC: ERS 16:43
DX: K57.32 Diverticulitis of large intestine without perforation or abscess without bleeding (principal); R51 Headache; I10 Essential (primary) hypertension; F17.210 Nicotine dependence, cigarettes, uncomplicated; Z79.899 Other long term (current) drug therapy
CPT/HCPCS: 36415; 74177; 80053; 81003; 83605; 83690; 85025; 96365; 96367; 96375; J0744; J1200; J1885; J2765; J3475; Q9967

== ENCOUNTER 2018-12-21 12:51 | Outpatient (CLI) | payer OTHER ==
[2018-12-21 15:14] LABS: #Basophils 0.1 thou/uL (0.0-0.2); #Eosinphils 0.2 thou/uL (0.0-0.7); #Lymphocytes 2.5 thou/uL (1.20-3.40); #Monocytes 0.5 thou/uL (0.11-0.59); %Basophils 1.2 % (0.0-1.0); %Lymphocytes 24.1 % (21.0-51.0); %Monocytes 4.7 % (0.0-10.0); %Neutrophils 68.1 % (42.0-75.0); Mean Corpuscular HGB CONC 34.2 g/dL (32.0-36.0); Mean Corpuscular Hemoglobin 31.3 pg (27.0-31.0); Mean Corpuscular Volume 91.6 fL (78.0-98.0); Platelet Count 323 thou/uL (130-400); White Blood Cell (WBC) Count 10.3 thou/uL (4.8-10.8)
[2018-12-21 15:21] LABS: Hemoglobin A1c 5.5 % (4.0-6.0)
[2018-12-21 15:37] LABS: ALT (SGPT) 10 U/L (8-55); AST (SGOT) 19 U/L (5-34); Albumin 4.5 g/dL (3.5-5.0); Alkaline Phosphatase 92 U/L (40-150); Anion Gap 10 mmol/L (10-20); BUN (Urea Nitrogen) 12 mg/dL (8.4-25.7); Bilirubin, Total 0.4 mg/dL (0.2-1.2); Calc. Creatinine Clearance 0 mL/min (70-130); Calcium 9.9 mg/dL (7.8-10.44); Carbon Dioxide 30 mmol/L (22-29); Chloride 103 mmol/L (98-107); Estimated GFR-MDRD 60; Globulin 3.4 g/dL (2.4-3.5); Glucose 134 mg/dL (70-105); Potassium 4.2 mmol/L (3.5-5.1); Protein, Total 7.9 g/dL (6.0-8.3); Sodium 139 mmol/L (136-145)
== END 2018-12-21 12:52 | disposition home or self-care (01) ==
LOC: LABBT 12:51
PROVIDERS: ATTEND Surgery
DX: Z01.812 Encounter for preprocedural laboratory examination (principal); K57.92 Diverticulitis of intestine, part unspecified, without perforation or abscess without bleeding
CPT/HCPCS: 80053; 83036; 85025

== ENCOUNTER 2018-12-21 13:00 | Inpatient (IN) | payer OTHER ==
[2018-12-29] MEDS ORDERED: cefOXitin 2 GM VIAL ONE (06:15)
[2018-12-29] MEDS ORDERED: Sodium Chloride 0.9% 100 ML ONE (06:15)
[2018-12-29] MEDS ORDERED: Midazolam HCl 2 mg/2 ml Vial ONE ×2 (06:22→07:01)
[2018-12-29] MEDS ORDERED: Fentanyl 250 MCG/5 ML VIAL ONE (06:22)
[2018-12-29] MEDS ORDERED: Bupivacaine/Epinephrine 0.25% 30 ML VIAL ONE (06:31)
[2018-12-29] MEDS ORDERED: Fentanyl 100 MCG/2 ML VIAL ONE ×3 (07:01→12:46)
[2018-12-29] MEDS ORDERED: Dexamethasone 4 mg/ml Vial ONE (07:01)
[2018-12-29] MEDS ORDERED: Promethazine HCl 25 MG/ML VIAL IM PRN ×2 (11:56→23:27)
[2018-12-29] MEDS ORDERED: Fentanyl 100 MCG/2 ML VIAL SLOW IVP PRN (11:56)
[2018-12-29] MEDS ORDERED: Ondansetron PF 4 MG/2 ML Vial IVP PRN ×2 (11:56→23:27)
[2018-12-29] MEDS ORDERED: hydrALAZINE 20 MG/ML VIAL SLOW IVP PRN (11:56)
[2018-12-29] MEDS: Acetaminophen 1,000 MG in Premix Bag 1 BAG IVPB SCH ×3 (13:41→20:16)
[2018-12-29 15:05] VITALS: BMI 24.8
--- NOTE | 2018-12-29 15:22 | OP ---
DATE OF PROCEDURE: 12/29/2018 PREOPERATIVE DIAGNOSIS: Chronic diverticulitis. POSTOPERATIVE DIAGNOSIS: Chronic diverticulitis. PROCEDURE PERFORMED: 1. Laparoscopic converted to open sigmoid colectomy with low pelvic anastomosis. 2. Splenic flexure mobilization. ANESTHESIA: General. ESTIMATED BLOOD LOSS: 200 mL. COMPLICATIONS: None. FINDINGS: Severe localized inflammatory change fused to the back wall of the bladder. DESCRIPTION OF PROCEDURE: The patient was taken to the operating room and laid supine on the operating room table. After general anesthetic was obtained, a Carmona was placed. The patient was placed in lithotomy position. His abdomen was prepped and draped in a sterile fashion. Left subcostal 5 mm Optiview trocar was placed in usual fashion. High-flow pneumoperitoneum was obtained. Two lower abdominal ports were placed, and mobilization of the sigmoid was attempted. There was significant localized chronic inflammatory change, and the sigmoid colon was fused to the posterior bladder. Decision to open midline incision was made. Bookwalter retractor was placed. The colon was mobilized along the white line of Toldt. Ureters found and excluded from the dissection. The colon was able to be carefully dissected off the posterior wall of the upper dome of the bladder without injury. The peritoneum was taken down. The inferior mesenteric artery was taken near its base. Mobilization was taken down toward the upper rectum, where circumferential dissection was performed. Contour stapler was fired across the upper rectum. Zofia clamps and silk ties used to take all vascular structures going up. The splenic flexure was mobilized in the usual fashion to allow for the upper colon to reach down into the pelvis under no tension. Location was found in the proximal descending colon, where there was good blood supply, and an EEA 31 anvil was brought out through the side of the colon. Distal to this, the colon was stapled off. This upper colon reached down into the pelvis under no tension. The specimen was sent for path for final diagnosis. The base for the EEA was brought up through the rectum. Each sharp pin brought down on the antimesenteric surface of the colon below, connected to the anvil from above. The anastomosis was tightened down into the green zone and fired. The anastomosis was oversewn using silk sutures. There were initially some air bubbles on insufflation, but these went away after oversew. There was no ongoing bleeding. No injury to any intra-abdominal structures. All instrument counts, needle counts, and lap counts were correct. Midline fascia was closed using #1 PDS from top and bottom and tied in the middle. Subcutaneous tissues were irrigated. Subcutaneous tissues were closed using 3-0 Vicryl, 4-0 Monocryl, and Dermabond. The patient was sent to Recovery in stable condition. Instrument counts, needle counts, and lap counts were correct. Job ID: [id number]
[2018-12-29] MEDS: D5 1/2 NS w/20 mEq KCL 1,000 ML IV SCH ×2 (15:23→20:18)
[2018-12-29] MEDS: cefOXitin Sodium 1 GM in Sodium Chloride 0.9% 100 ML IVPB SCH ×2 (15:24→21:37)
[2018-12-29] MEDS: Fentanyl 100 MCG/2 ML VIAL SLOW IVP PRN ×3 (15:27→21:36)
[2018-12-29] MEDS: Ketorolac Tromethamine 30 MG/ML VIAL IVP PRN ×2 (16:59→23:11)
[2018-12-29] MEDS: Famotidine 20 MG TAB PO SCH (20:17)
[2018-12-29] MEDS: Enoxaparin Sodium 40 MG/0.4 ML SYRINGE SC SCH (20:17)
[2018-12-29] MEDS: Famotidine/PF 20 mg/2ml Vial SLOW IVP SCH (20:18)
[2018-12-29] MEDS ORDERED: Bupivacaine HCl 0.5%/Epinephrine 1:200,000/PF 30 ml Vial ONE (21:03)
[2018-12-29] MEDS ORDERED: Ondansetron PF 4 MG/2 ML Vial ONE (22:13)
[2018-12-29] MEDS ORDERED: Labetalol HCl 100 MG/20 ML VIAL ONE (22:13)
[2018-12-29] MEDS ORDERED: PROPOFOL 200 MG/20 ML VIAL ONE (22:13)
[2018-12-29] MEDS ORDERED: Rocuronium Bromide 10 MG/ML (10ML VIAL) ONE (22:13)
[2018-12-29] MEDS ORDERED: Dexamethasone 20 MG/5 ML VIAL ONE (22:13)
[2018-12-29] MEDS ORDERED: Lidocaine 1% PF 5 ML VIAL ONE (22:13)
[2018-12-29] MEDS ORDERED: Glycopyrrolate 0.2 MG/ML 5 ML SYRINGE ONE (22:13)
[2018-12-29] MEDS ORDERED: Ketorolac Tromethamine 30 MG/ML VIAL ONE (22:13)
[2018-12-29] MEDS ORDERED: Zolpidem Tartrate 5 MG TAB PO PRN (23:27)
[2018-12-29] MEDS ORDERED: Naloxone HCl 0.4 mg/ml Vial IV PRN (23:27)
[2018-12-29] MEDS ORDERED: diphenhydrAMINE 50 MG/ML VIAL IM PRN (23:27)
[2018-12-29] MEDS ORDERED: diphenhydrAMINE 50 MG/ML VIAL IVP PRN (23:27)
[2018-12-29] MEDS ORDERED: diphenhydrAMINE 25 MG CAP PO PRN (23:27)
[2018-12-29] MEDS ORDERED: Communication Order-Pharmacy FS SCH (23:30)
[2018-12-30] MEDS: HYDROmorphone 10 mg/100 ml CADD IVPB PRN (00:40)
[2018-12-30] MEDS ORDERED: D5 1/2 NS w/20 mEq KCL 1,000 ML ONE (00:47)
[2018-12-30] MEDS: D5 1/2 NS w/20 mEq KCL 1,000 ML IV SCH ×3 (00:49→13:50)
[2018-12-30] MEDS: Acetaminophen 1,000 MG in Premix Bag 1 BAG IVPB SCH ×2 (02:27→10:24)
[2018-12-30] MEDS: Levothyroxine Sodium 125 MCG TAB PO SCH (05:17)
[2018-12-30] MEDS: Ketorolac Tromethamine 30 MG/ML VIAL IVP PRN (05:17)
[2018-12-30 06:25] LABS: #Lymphocytes 1.5 thou/uL (1.20-3.40); #Monocytes 1.3 thou/uL (0.11-0.59); #Neutrophils 13.8 thou/uL (1.40-6.50); %Basophils 0.1 % (0.0-1.0); %Lymphocytes 8.8 % (21.0-51.0); %Monocytes 7.8 % (0.0-10.0); %Neutrophils 83.3 % (42.0-75.0); Hemoglobin 10.2 g/dL (14.0-18.0); Mean Corpuscular HGB CONC 33.9 g/dL (32.0-36.0); Mean Corpuscular Hemoglobin 31.4 pg (27.0-31.0); Mean Corpuscular Volume 92.8 fL (78.0-98.0); Mean Platelet Volume 7.5 fL (7.4-10.4); Platelet Count 258 thou/uL (130-400); RBC Distribution Width 12.1 % (11.5-14.5); Red Blood Cell (RBC) Count 3.24 mill/uL (4.70-6.10); White Blood Cell (WBC) Count 16.6 thou/uL (4.8-10.8)
[2018-12-30 06:59] LABS: Anion Gap 9 mmol/L (10-20); BUN (Urea Nitrogen) 13 mg/dL (8.4-25.7); Calc. Creatinine Clearance 90 mL/min (70-130); Calcium 8.3 mg/dL (7.8-10.44); Carbon Dioxide 22 mmol/L (22-29); Chloride 103 mmol/L (98-107); Estimated GFR-MDRD 71; Glucose 164 mg/dL (70-105); Potassium 4.4 mmol/L (3.5-5.1); Sodium 130 mmol/L (136-145)
--- NOTE | 2018-12-30 07:30 | PDOC.GSPN ---
Surgery Progress Note: Subj - Subjective Patient reports: had a bowel movement (2x loose stools streaked with blood), tolerating liquids well, voiding w/o difficulty (Jasso removed after surgery at patient's request - no trouble voiding since then), blood in stool, having loose stools, still having pain (9/10 without [employer] use, decreases with [employer] use.) Narrative: Patient is s/p laparascopic converted to open sigmoid colectomy for chronic diverticulitis. He is post op day 1. He had a significant amount of pain overnight around the site of incision and in his left lower abdomen, which he rated 9/10 at the worst. [employer] pump was placed overnight in response to uncontrolled pain level. He has used the [employer] several times overnight and gets relief with its use. He has only ambulated to the bathroom and back overnight due to pain level. He has done well on a clear liquid diet, and has had flatus and 2 loose bowel movements streaked with blood. He denies nausea or vomiting, and is eager to progress to a full liquid diet. Surgery Progress Note: Obj - Vital signs Vital signs: Vital Signs - Most Recent Temp Pulse Resp BP Pulse Ox 97.9 F 73 18 112/56 L 95 12/30/18 03:19 12/30/18 03:19 12/30/18 03:19 12/30/18 03:19 12/30/18 03:19 - Physical Exam General: moderate distress, moderate pain (9/10 on exam ([employer] had not been pushed recently PTE)) Cardiovascular: regular rate and rhythm Respiratory: clear to auscultation, normal expansion, normal respiratory effort , breath sounds present Abdomen: positive bowel sounds (NABS), appropriately tender (tender around sites of incision and left lower quadrant), distended (Abdomen is slightly distended and tympanic to percussion) Wound: healing well (Suture line is clean, dry. No signs of infection.) Surgery Progress Note: Results - Labs Result Diagrams: 12/30/18 05:32 12/30/18 05:32 Lab results: Laboratory Results - last 24 hr 12/30/18 12/30/18 05:32 05:32 WBC 16.6 H RBC 3.24 L Hgb 10.2 L Hct 30.1 L MCV 92.8 MCH 31.4 H MCHC 33.9 RDW 12.1 Plt Count 258 MPV 7.5 Neutrophils % 83.3 H Lymphocytes % 8.8 L Monocytes % 7.8 Eosinophils % 0.0 Basophils % 0.1 Neutrophils # 13.8 H Lymphocytes # 1.5 Monocytes # 1.3 H Eosinophils # 0.0 Basophils # 0.0 Sodium 130 L Potassium 4.4 Chloride 103 Carbon Dioxide 22 Anion Gap 9 L BUN 13 Creatinine 1.09 Estimated GFR (MDRD) 71 Glucose 164 H Calcium 8.3 12/21/18: WBC 10.3 Hct 44 Surgery Progress Note: A/P - Problem (1) S/P colectomy Current Visit: Yes Status: Acute - Plan Plan: Pt is post op day 1 for sigmoid colectomy. He is doing well on clear liquids and is voiding without difficulty with jasso absent. He has had 2 bowel movements streaked with blood overnight whichwere loose consistency. He has had pain at 9/10 and had a [employer] pump placed overnight. He has a normocytic anemia post surgery which will be monitored, and a sodium level of 130. Plan: -Progress diet to full liquids this evening as tolerated -Continue [employer] until pain is able to be controlled on IV tylenol/tramadol alone -OOB/Ambulate today Addendum - Physician - Physician Attestation Date/Time: 12/30/18 1114 I personally performed or re-performed the physical examination and medical decision making. I have verified all student documentation or findings, including history, physical exam and/or medical decision making. Hasn't walked yet. I stressed the importance of early ambulation He has bowel sounds but hiccups so will keep him on clear liquids today
[2018-12-30] MEDS ORDERED: Acetaminophen 1,000 MG in Premix Bag 1 BAG IVPB SCH (08:00)
[2018-12-30] MEDS: Famotidine 20 MG TAB PO SCH ×2 (08:30→19:59)
[2018-12-30] MEDS: Famotidine/PF 20 mg/2ml Vial SLOW IVP SCH ×2 (08:36→19:59)
[2018-12-30] MEDS: Enoxaparin Sodium 40 MG/0.4 ML SYRINGE SC SCH (19:59)
[2018-12-31] MEDS: Levothyroxine Sodium 125 MCG TAB PO SCH (05:04)
[2018-12-31] MEDS: D5 1/2 NS w/20 mEq KCL 1,000 ML IV SCH (05:04)
[2018-12-31 05:05] LABS: #Lymphocytes 1.8 thou/uL (1.20-3.40); #Neutrophils 10.8 thou/uL (1.40-6.50); %Basophils 0.1 % (0.0-1.0); %Lymphocytes 13.5 % (21.0-51.0); %Neutrophils 79.4 % (42.0-75.0); Hemoglobin 7.6 g/dL (14.0-18.0); Mean Corpuscular HGB CONC 34.3 g/dL (32.0-36.0); Mean Corpuscular Hemoglobin 31.8 pg (27.0-31.0); Mean Corpuscular Volume 92.9 fL (78.0-98.0); Mean Platelet Volume 7.3 fL (7.4-10.4); Platelet Count 171 thou/uL (130-400); Red Blood Cell (RBC) Count 2.38 mill/uL (4.70-6.10); White Blood Cell (WBC) Count 13.6 thou/uL (4.8-10.8)
[2018-12-31] MEDS: HYDROmorphone 10 mg/100 ml CADD IVPB PRN (05:05)
[2018-12-31 05:21] LABS: Anion Gap 9 mmol/L (10-20); BUN (Urea Nitrogen) 13 mg/dL (8.4-25.7); Calc. Creatinine Clearance 101 mL/min (70-130); Calcium 8.1 mg/dL (7.8-10.44); Carbon Dioxide 24 mmol/L (22-29); Chloride 104 mmol/L (98-107); Estimated GFR-MDRD 81; Glucose 96 mg/dL (70-105); Potassium 4.6 mmol/L (3.5-5.1); Sodium 132 mmol/L (136-145)
[2018-12-31] MEDS: Famotidine 20 MG TAB PO SCH ×2 (09:43→21:33)
[2018-12-31] MEDS: Famotidine/PF 20 mg/2ml Vial SLOW IVP SCH ×2 (09:43→21:33)
[2018-12-31] MEDS ORDERED: traMADol HCl 50 MG TAB PO PRN (10:50)
[2018-12-31] MEDS ORDERED: Fentanyl 100 MCG/2 ML VIAL SLOW IVP PRN ×2 (10:50)
[2018-12-31] MEDS ORDERED: Acetaminophen 1,000 MG in Premix Bag 1 BAG IVPB PRN (10:51)
--- NOTE | 2018-12-31 10:52 | PDOC.GSPN ---
Surgery Progress Note: Subj - Subjective Narrative: No nausea Surgery Progress Note: Obj - Vital signs Vital signs: Vital Signs - Most Recent Temp Pulse Resp BP Pulse Ox 98.4 F 84 16 95/61 94 L 12/31/18 07:54 12/31/18 07:54 12/31/18 07:54 12/31/18 07:54 12/31/18 07:54 - Physical Exam General: no distress Cardiovascular: regular rate and rhythm Respiratory: clear to auscultation Abdomen: soft, nondistended, appropriately tender Wound: healing well Surgery Progress Note: Results - Labs Result Diagrams: 12/31/18 04:32 12/31/18 04:32 Lab results: Laboratory Results - last 24 hr 12/31/18 12/31/18 04:32 04:32 WBC 13.6 H RBC 2.38 L Hgb 7.6 L Hct 22.1 L MCV 92.9 MCH 31.8 H MCHC 34.3 RDW 12.0 Plt Count 171 MPV 7.3 L Neutrophils % 79.4 H Lymphocytes % 13.5 L Monocytes % 7.0 Eosinophils % 0.0 Basophils % 0.1 Neutrophils # 10.8 H Lymphocytes # 1.8 Monocytes # 1.0 H Eosinophils # 0.0 Basophils # 0.0 Sodium 132 L Potassium 4.6 Chloride 104 Carbon Dioxide 24 Anion Gap 9 L BUN 13 Creatinine 0.97 Estimated GFR (MDRD) 81 Glucose 96 Calcium 8.1 Surgery Progress Note: A/P - Problem (1) S/P colectomy Current Visit: Yes Status: Acute - Plan Plan: POD 2 -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
[2018-12-31] MEDS ORDERED: Acetaminophen 650 MG/20.3 ML UDCUP PO PRN (11:21)
[2018-12-31] MEDS: traMADol HCl 50 MG TAB PO PRN ×3 (11:30→23:49)
[2018-12-31] MEDS: Ketorolac Tromethamine 30 MG/ML VIAL IVP PRN ×2 (17:56→23:50)
[2018-12-31] MEDS: Enoxaparin Sodium 40 MG/0.4 ML SYRINGE SC SCH (21:33)
[2019-01-01] MEDS: Levothyroxine Sodium 125 MCG TAB PO SCH (06:25)
[2019-01-01] MEDS: Ketorolac Tromethamine 30 MG/ML VIAL IVP PRN (06:26)
[2019-01-01] MEDS: traMADol HCl 50 MG TAB PO PRN (06:28)
[2019-01-01 07:51] VITALS: BP 103/58; TEMP 97.9
[2019-01-01] MEDS: Famotidine 20 MG TAB PO SCH (08:56)
[2019-01-01] MEDS: Famotidine/PF 20 mg/2ml Vial SLOW IVP SCH (08:56)
--- NOTE | 2019-01-01 11:01 | DIS ---
DATE OF ADMISSION: 12/29/2018 DATE OF DISCHARGE: 01/01/2019 ADMIT DIAGNOSIS: Acute on chronic sigmoid diverticulitis. DISCHARGE DIAGNOSIS: Acute on chronic sigmoid diverticulitis. PROCEDURES: Sigmoid colectomy with anastomosis, surgeon Dallin. CONDITION ON DISCHARGE: Improved. HOSPITAL COURSE: The patient's postop course was uneventful. His ileus slowly resolved. On the day of discharge, he is tolerating a full liquid diet. He will go home on a full liquid diet. He continued soup diet for 2 days, then casserole diet for few days, then diet as tolerated. Prescriptions for tramadol and Zofran sent to [facility] on [address]. He will see me back in 2 weeks. Job ID: [id number]
== END 2019-01-01 10:40 | disposition home or self-care (01) | DRG 330 ==
LOC: SURG A 12-29 05:41
PROVIDERS: ADMIT Surgery; ATTEND Surgery
PROC: 0DTN0ZZ Resection of Sigmoid Colon, Open Approach (ICD-10-PCS; principal; 2018-12-29)
PROC: 0DJD4ZZ Inspection of Lower Intestinal Tract, Percutaneous Endoscopic Approach (ICD-10-PCS; 2018-12-29)
PROC: 0DNL0ZZ Release Transverse Colon, Open Approach (ICD-10-PCS; 2018-12-29)
DX: K57.32 Diverticulitis of large intestine without perforation or abscess without bleeding (principal); K56.7 Ileus, unspecified; I10 Essential (primary) hypertension; F41.9 Anxiety disorder, unspecified; E03.9 Hypothyroidism, unspecified; D50.0 Iron deficiency anemia secondary to blood loss (chronic); Z87.891 Personal history of nicotine dependence; Z72.89 Other problems related to lifestyle; Z87.442 Personal history of urinary calculi
CPT/HCPCS: 36415; 36416; 80048; 85025; 88307; 94640; J0131; J0670; J0694; J1100; J1650; J1885; J2001; J2250; J2405; J2704; J3010; J3490; J7620; S0028

== ENCOUNTER 2019-01-03 11:05 | Emergency (ER) | payer OTHER ==
--- NOTE | 2019-01-03 11:38 | RAD ---
Chest AP view INDICATION: Syncope COMPARISON: May 05, 2015 FINDINGS: Lungs:The lungs are clear Cardiac silhouette:The cardiomediastinal silhouette appears within normal limits. Pulmonary vasculature:Normal Pleural spaces:No pleural effusion or pneumothorax is demonstrated. Upper abdomen:No abnormality seen. Osseous structures: No acute osseous abnormality. Additional findings:None. IMPRESSION: No acute cardiopulmonary abnormality.
[2019-01-03 11:52] LABS: #Eosinphils 0.3 thou/uL (0.0-0.7); #Lymphocytes 1.9 thou/uL (1.20-3.40); #Monocytes 0.5 thou/uL (0.11-0.59); %Basophils 0.4 % (0.0-1.0); %Eosinophils 3.2 % (0.0-10.0); %Lymphocytes 17.7 % (21.0-51.0); %Monocytes 4.9 % (0.0-10.0); %Neutrophils 73.7 % (42.0-75.0); Hemoglobin 8.9 g/dL (14.0-18.0); Mean Corpuscular HGB CONC 34.9 g/dL (32.0-36.0); Mean Corpuscular Hemoglobin 31.3 pg (27.0-31.0); Mean Corpuscular Volume 89.9 fL (78.0-98.0); Mean Platelet Volume 6.6 fL (7.4-10.4); Platelet Count 268 thou/uL (130-400); RBC Distribution Width 11.6 % (11.5-14.5); Red Blood Cell (RBC) Count 2.83 mill/uL (4.70-6.10); White Blood Cell (WBC) Count 10.8 thou/uL (4.8-10.8)
[2019-01-03 12:16] LABS: ALT (SGPT) 21 U/L (8-55); AST (SGOT) 33 U/L (5-34); Albumin 3.6 g/dL (3.5-5.0); Alkaline Phosphatase 81 U/L (40-110); Anion Gap 16 mmol/L (10-20); BUN (Urea Nitrogen) 7 mg/dL (8.4-25.7); Bilirubin, Total 0.6 mg/dL (0.2-1.2); Calc. Creatinine Clearance 0 mL/min (70-130); Calcium 8.6 mg/dL (7.8-10.44); Carbon Dioxide 22 mmol/L (22-29); Chloride 101 mmol/L (98-107); Estimated GFR-MDRD 83; Globulin 2.3 g/dL (2.4-3.5); Glucose 113 mg/dL (70-105); Lipase 10 U/L (8-78); Potassium 3.9 mmol/L (3.5-5.1); Protein, Total 5.9 g/dL (6.0-8.3); Sodium 135 mmol/L (136-145)
[2019-01-03] MEDS ORDERED: ISOVUE-370 76%-LOCM 1 ML ONE (12:23)
[2019-01-03 12:43] LABS: Bilirubin Negative (Negative); Blood, Urine Negative (Negative); Glucose, Urine (Dipstick) Negative (Negative); Leukocyte Negative (Negative); Nitrite Negative (Negative); Protein, Urine (Dipstick) 30 mg/dL (Neg-Trace); Urobilinogen 0.2 mg/dL (Less than 2)
[2019-01-03 12:44] LABS: Clarity Clear (Clear)
[2019-01-03 12:51] LABS: Bacteria/HPF Rare-Few HPF (None Seen); RBC/HPF None Seen HPF (0-3); Squamous Epithelial 0-3 HPF (0-3); WBC/HPF None Seen HPF (0-3)
--- NOTE | 2019-01-03 14:29 | CT ---
CTA THORAX UTILIZING IV CONTRAST WITH PE PROTOCOL AND 3D REFORMATTED IMAGING: INDICATIONS: Elevated D-dimer. COMPARISON: None. FINDINGS: There is a mildly prominent left infrahilar lymph node, measuring 1 cm. No additional enlarged lymph nodes are evident. No definite central or segmental pulmonary embolus is evident. There are scattered vascular calcifications involving the coronary arteries and thoracic aorta. There are areas of subsegmental volume loss within the left lower lobe. There are patchy areas of air space opacity within the left upper lobe. There is scattered emphysema. Patchy areas of ground glass opacity are seen within portions of the right middle lobe. No pleural e ffusion is evident. There is a small hiatal hernia. The adrenal glands are normal appearing. There is free air within the upper abdomen. The patient is reportedly postop; however, this was on of last week. The patient is now five days out from surgery. The degree of gas is more than exp ected on postop day five. IMPRESSION: 1. No definite central or segmental pulmonary embolus demonstrated. 2. Patchy areas of ground glass opacity within the right middle lobe and left upper lobe may reflect areas of subsegmental volume loss or areas of small pneumonitis. 3. Free air within the abdomen, much more than expected on postoperative day five. Recommend a noncon trast CT abdomen and pelvis for further characterization. Findings called To CLEVE Gonzalez at 1:58 p.m. on 01/03/2019. CODE CR POS: OFF
--- NOTE | 2019-01-03 14:36 | CT ---
CT abdomen and pelvis noncontrast HISTORY: Free intraperitoneal gas on CT chest. Recent colon surgery. COMPARISON: 11/14/2018. FINDINGS: Some contrast within the urinary system is consistent with recent CT arteriogram chest. The re is mild atelectasis at each lung base. Small amount of free air is present within the nondependent portion of the abdomen and pelvis and scattered throughout the abdominal fat. Suture row is present at the upper rectum. Edematous change evident at the upper rectum just beyond the site of anastomosis. Findings consistent with left hemicolectomy. There is no collection of gas near the p ostoperative site. Minimal free fluid. No abnormal fluid collections. Degenerative changes throughout the lumbar spine. Small hiatal hernia. IMPRESSION: Postsurgical changes. No evidence of complication. Other findings are stable.
== END 2019-01-03 18:21 | disposition home or self-care (01) ==
LOC: ERS 11:05
DX: R55 Syncope and collapse (principal); E86.0 Dehydration; I10 Essential (primary) hypertension; F17.210 Nicotine dependence, cigarettes, uncomplicated; Z79.899 Other long term (current) drug therapy
CPT/HCPCS: 36415; 71045; 71275; 74176; 80053; 81003; 81015; 83690; 84484; 85025; 85379; 93005; 96360; 96361; Q9966

== ENCOUNTER 2019-03-15 12:11 | Emergency (ER) | payer OTHER ==
[~2019-03-15 12:11] MED LIST changes: -Iopamidol 370 76% 100 ML VIAL ONE; +Iopamidol-370 76% 500 ML 1 ML ONE
[2019-03-15 12:47] LABS: #Basophils 0.1 thou/uL (0.0-0.2); #Lymphocytes 2.3 thou/uL (1.20-3.40); #Monocytes 0.5 thou/uL (0.11-0.59); #Neutrophils 10.7 thou/uL (1.40-6.50); %Basophils 0.6 % (0.0-1.0); %Eosinophils 0.1 % (0.0-10.0); %Lymphocytes 16.7 % (21.0-51.0); %Monocytes 3.8 % (0.0-10.0); %Neutrophils 78.8 % (42.0-75.0); Hemoglobin 13.3 g/dL (14.0-18.0); Mean Corpuscular HGB CONC 33.6 g/dL (32.0-36.0); Mean Corpuscular Volume 89.4 fL (78.0-98.0); Mean Platelet Volume 6.7 fL (7.4-10.4); Platelet Count 297 thou/uL (130-400); RBC Distribution Width 12.2 % (11.5-14.5); Red Blood Cell (RBC) Count 4.43 mill/uL (4.70-6.10); White Blood Cell (WBC) Count 13.5 thou/uL (4.8-10.8)
[2019-03-15 13:19] LABS: ALT (SGPT) 14 U/L (8-55); AST (SGOT) 18 U/L (5-34); Albumin 4.6 g/dL (3.5-5.0); Alkaline Phosphatase 121 U/L (40-110); Anion Gap 15 mmol/L (10-20); BUN (Urea Nitrogen) 15 mg/dL (8.4-25.7); Bilirubin, Total 0.3 mg/dL (0.2-1.2); Calc. Creatinine Clearance 0 mL/min (70-130); Calcium 9.7 mg/dL (7.8-10.44); Carbon Dioxide 23 mmol/L (22-29); Chloride 98 mmol/L (98-107); Estimated GFR-MDRD 72; Globulin 3.2 g/dL (2.4-3.5); Glucose 113 mg/dL (70-105); Lipase 27 U/L (8-78); Potassium 3.7 mmol/L (3.5-5.1); Protein, Total 7.8 g/dL (6.0-8.3); Sodium 132 mmol/L (136-145)
[2019-03-15] MEDS ORDERED: Morphine 4 MG/ML VIAL ONE (15:56)
[2019-03-15] MEDS ORDERED: Ondansetron PF 4 MG/2 ML Vial ONE (15:56)
[2019-03-15 17:08] LABS: Bilirubin Negative (Negative); Blood, Urine Negative (Negative); Clarity Clear (Clear); Glucose, Urine (Dipstick) Normal (Negative); Leukocyte Negative Leu/uL (Negative); Nitrite Negative (Negative); Protein, Urine (Dipstick) Negative (Neg-Trace); Urobilinogen Normal mg/dL (Less than 2)
--- NOTE | 2019-03-15 17:15 | CT ---
CT Abdomen Pelvis W Con History: Right lower quadrant pain Comparison: CT abdomen and pelvis without contrast December 2018 Findings: Lung bases are clear. No pericardial effusion. Small sliding hiatal hernia. No free intraperitoneal gas or fluid. Likely changes of sigmoid colon. No small bowel dilatation. Hypodensity interpolar left kidney along the medial cortex has not signifi cantly grown. Spleen, pancreas, liver, gallbladder are all unremarkable. No retroperitoneal periaortic adenopathy. Moderate atherosclerotic plaque of the aorta without aneurysmal dilatation. No hydroureteronephrosis. No suspicious osteolytic or osteoblastic lesion. High grade 70-80% narrowing of the right common femoral artery for length of 4-5 mm due to soft plaqu e seen on axial image 74. Impression: Postoperative changes. No acute inflammatory process within the abdomen or pelvis.
== END 2019-03-15 18:13 | disposition home or self-care (01) ==
LOC: ERS 12:11
DX: K59.00 Constipation, unspecified (principal); F17.210 Nicotine dependence, cigarettes, uncomplicated; I10 Essential (primary) hypertension
CPT/HCPCS: 36415; 74177; 80053; 81003; 83690; 85025; 93005; 96361; 96374; J2270; J2405; Q9967

== ENCOUNTER 2020-08-20 16:20 | Emergency (ER) | payer BC ==
[2020-08-20 16:47] LABS: #Basophils 0.1 thou/uL (0.0-0.2); #Eosinphils 0.1 thou/uL (0.0-0.7); #Lymphocytes 1.9 thou/uL (1.20-3.40); #Monocytes 0.5 thou/uL (0.11-0.59); #Neutrophils 7.5 thou/uL (1.40-6.50); %Basophils 0.6 % (0.0-1.0); %Eosinophils 0.8 % (0.0-10.0); %Neutrophils 74.6 % (42.0-75.0); Mean Corpuscular HGB CONC 34.6 g/dL (32.0-36.0); Mean Corpuscular Hemoglobin 32.6 pg (27.0-31.0); Mean Corpuscular Volume 94.1 fL (78.0-98.0); Mean Platelet Volume 6.6 fL (7.4-10.4); Platelet Count 260 thou/uL (130-400); Red Blood Cell (RBC) Count 4.61 mill/uL (4.70-6.10)
[2020-08-20] MEDS ORDERED: Ketorolac Tromethamine 30 MG/ML VIAL ONE (16:51)
[2020-08-20] MEDS ORDERED: Ondansetron PF 4 MG/2 ML Vial ONE (16:51)
[2020-08-20 17:00] LABS: Bilirubin Negative (Negative); Blood, Urine Negative (Negative); Clarity Clear (Clear); Glucose, Urine (Dipstick) Normal (Negative); Ketone, Urine Negative (Negative); Leukocyte Negative Leu/uL (Negative); Nitrite Negative (Negative); Protein, Urine (Dipstick) 10 mg/dL (Neg-Trace); Specific Gravity, Urine 1.026 (1.002-1.036); Urobilinogen Normal mg/dL (Less than 2); pH, Urine 5.5 (5.0-9.0)
[2020-08-20 17:10] LABS: ALT (SGPT) 17 U/L (8-55); AST (SGOT) 21 U/L (5-34); Albumin 4.3 g/dL (3.5-5.0); Alkaline Phosphatase 109 U/L (40-110); Anion Gap 12 mmol/L (10-20); BUN (Urea Nitrogen) 17 mg/dL (8.4-25.7); Bilirubin, Total 0.5 mg/dL (0.2-1.2); Calc. Creatinine Clearance 0 mL/min (70-130); Calcium 9.6 mg/dL (7.8-10.44); Carbon Dioxide 26 mmol/L (22-29); Chloride 102 mmol/L (98-107); Globulin 3.2 g/dL (2.4-3.5); Glucose 93 mg/dL (70-105); Potassium 3.7 mmol/L (3.5-5.1); Protein, Total 7.5 g/dL (6.0-8.3); Sodium 136 mmol/L (136-145)
== END 2020-08-20 19:07 | disposition home or self-care (01) ==
LOC: ERS 16:20
DX: R10.32 Left lower quadrant pain (principal); R11.0 Nausea; I10 Essential (primary) hypertension; F17.210 Nicotine dependence, cigarettes, uncomplicated
CPT/HCPCS: 36415; 74177; 80053; 81003; 85025; 96374; 96375; J1885; J2405; Q9967

== ENCOUNTER 2024-04-16 07:59 | Outpatient (CLI) | payer BC ==
[2024-04-16 08:56] LABS: #Basophils 0.07 10x3/uL (0.0-0.2); %Basophils 0.8 % (0.0-1.0); %Eosinophils 4.3 % (0.0-10.0); %Lymphocytes 20.4 % (21.0-51.0); %Neutrophils 67.3 % (42.0-75.0); Hematocrit 43.5 % (42.0-52.0); Hemoglobin 14.5 g/dL (14.0-18.0); Mean Corpuscular HGB CONC 33.3 g/dL (32.0-36.0); Mean Corpuscular Hemoglobin 30.7 pg (27.0-31.0); Mean Corpuscular Volume 92.2 fL (78.0-98.0); Mean Platelet Volume 9.5 fL (7.4-10.4); Platelet Count 274 10x3/uL (130-400); RBC Distribution Width 12.7 % (11.5-14.5); Red Blood Cell (RBC) Count 4.72 mill/uL (4.70-6.10)
[2024-04-16 09:12] LABS: Anion Gap 9 mmol/L (10-20); BUN (Urea Nitrogen) 17 mg/dL (8.4-25.7); Calc. Creatinine Clearance 0 mL/min (70-130); Calcium 9.3 mg/dL (7.8-10.44); Carbon Dioxide 29 mmol/L (22-29); Chloride 103 mmol/L (98-107); Estimated GFR 98; Glucose 101 mg/dL (70-105); Potassium 4.2 mmol/L (3.5-5.1); Sodium 137 mmol/L (136-145)
== END 2024-04-16 08:00 | disposition home or self-care (01) ==
LOC: LABBT 07:59
PROVIDERS: ATTEND Neurological Surgery
DX: Z01.818 Encounter for other preprocedural examination (principal); M48.062 Spinal stenosis, lumbar region with neurogenic claudication
CPT/HCPCS: 80048; 85025; 93005; 93010

== ENCOUNTER 2024-04-19 05:46 | Day surgery (SDC) | payer BC ==
[2024-04-16 08:16] VITALS: BMI 24.8
[2024-04-19] MEDS ORDERED: Vancomycin 1 GM VIAL ONE (06:22)
[2024-04-19] MEDS ORDERED: CEFAZOLIN 2 GM VIAL ONE (06:33)
[2024-04-19] MEDS ORDERED: HYDROmorphone 2 MG/ML VIAL ONE (06:53)
[2024-04-19] MEDS ORDERED: Dexamethasone 20 MG/5 ML VIAL ONE (07:02)
[2024-04-19] MEDS ORDERED: SUGAMMADEX SODIUM 200 MG/2 ML VIAL ONE (07:02)
[2024-04-19] MEDS ORDERED: Rocuronium Bromide 10 MG/ML (10ML VIAL) ONE (07:02)
[2024-04-19] MEDS ORDERED: Ondansetron PF 4 MG/2 ML Vial ONE (07:02)
[2024-04-19] MEDS ORDERED: MINERAL OIL/WHITE PETROLATUM 3.5 GM TUBE ONE (07:02)
[2024-04-19] MEDS ORDERED: Lidocaine 2% PF 5 ML VIAL ONE (07:02)
[2024-04-19] MEDS ORDERED: PROPOFOL 20 ML ONE (07:02)
[2024-04-19] MEDS ORDERED: PHENYLEPHRINE-NS 100 MCG/ML 10 ML SYRINGE ONE (07:03)
[2024-04-19] MEDS ORDERED: Midazolam HCl 2 mg/2 ml Vial ONE (07:19)
[2024-04-19] MEDS ORDERED: fentaNYL 50 mcg/mL 1 mL Vial ONE ×6 (07:31→10:29)
[2024-04-19] MEDS ORDERED: Glycopyrrolate 0.2 MG/ML 5 ML SYRINGE ONE (07:38)
[2024-04-19] MEDS ORDERED: fentaNYL PF 100 MCG/2 ML SYRINGE ONE (07:57)
[2024-04-19] MEDS ORDERED: HYDROcodone/Acetaminophen 5/325 mg Tablet ONE (11:27)
[2024-04-19] MEDS ORDERED: Cyclobenzaprine 10 MG TAB ONE (12:04)
[2024-04-19] MEDS ORDERED: Droperidol 5 MG/2 ML VIAL SLOW IVP PRN (14:36)
[2024-04-19] MEDS ORDERED: Promethazine HCl 25 MG/ML VIAL IVPB PRN (14:45)
[2024-04-19] MEDS ORDERED: Promethazine HCl 25 MG/ML VIAL IM PRN (14:45)
[2024-04-19] MEDS ORDERED: Ondansetron PF 4 MG/2 ML Vial IVP PRN (14:45)
[2024-04-19] MEDS ORDERED: HYDROcodone/Acetaminophen 5/325 mg Tablet PO PRN ×2 (14:45)
[2024-04-19] MEDS ORDERED: Morphine 4 MG/ML VIAL SLOW IVP PRN (14:45)
[2024-04-19] MEDS ORDERED: diphenhydrAMINE 25 MG CAP PO PRN (14:45)
[2024-04-19] MEDS ORDERED: Acetaminophen/Codeine 30-300mg Tablet PO PRN ×2 (14:45)
[2024-04-19] MEDS ORDERED: Milk Of Magnesia 30 ML UDCUP PO PRN (14:45)
[2024-04-19] MEDS ORDERED: Mag-Al 1200 mg/1200 mg/30 ML UDCUP PO PRN (14:45)
[2024-04-19] MEDS ORDERED: traMADol HCl 50 MG TAB PO PRN ×2 (14:45)
[2024-04-19] MEDS ORDERED: Promethazine HCl 12.5 MG SUPP PR PRN (14:45)
[2024-04-19] MEDS ORDERED: diphenhydrAMINE 50 MG/ML VIAL IVP PRN (14:45)
[2024-04-19] MEDS ORDERED: Sodium Chloride 0.9% 1,000 ML IV SCH (14:45)
[2024-04-19] MEDS ORDERED: Cyclobenzaprine 10 MG TAB PO PRN (14:45)
[2024-04-19] MEDS ORDERED: Promethazine 25 MG TAB PO PRN (14:45)
[2024-04-19] MEDS ORDERED: Morphine 2 MG/ML VIAL SLOW IVP PRN ×2 (14:45)
[2024-04-19] MEDS ORDERED: Ondansetron PF 4 MG/2 ML Vial SLOW IVP PRN (14:55)
== END 2024-04-19 12:38 | disposition home or self-care (01) ==
LOC: SDC 05:46
PROVIDERS: ATTEND Neurological Surgery
PROC: 00NY0ZZ Release Lumbar Spinal Cord, Open Approach (ICD-10-PCS; principal; 2024-04-19)
DX: M48.062 Spinal stenosis, lumbar region with neurogenic claudication (principal); I10 Essential (primary) hypertension; E78.5 Hyperlipidemia, unspecified; Z88.5 Allergy status to narcotic agent; Z88.8 Allergy status to other drugs, medicaments and biological substances; Z79.899 Other long term (current) drug therapy
CPT/HCPCS: C1713; J1100; J1171; J2250; J2405; J2704; J3010; J3370; J7030